=== PATIENT | female | born 1960 | race Caucasian/White ===

== ENCOUNTER 2017-02-01 07:35 | Day surgery (SDC) | payer BC ==
[~2017-02-01 07:35] MED LIST: Lidocaine 2% 5 ML SDV ONE; Propofol 200 MG/20 ML SDV ONE; fentaNYL 100 MCG/2 ML SDV ONE
[2017-02-01] MEDS ORDERED: Lactated Ringers 1,000 ML IV SCH (08:15)
--- NOTE | 2017-02-01 08:39 | PCM.PREANE ---
Preanesthetic Assessment - Anesthesia/Transfusion/Family Hx Anesthesia History: Prior Anesthesia Reaction Other Type of Anesthesia Reaction Comment: states had "problems with N/V after hip surgery" Family History of Anesthesia Reaction: No Transfusion History: No Prior Transfusion(s) - Review of Systems General: No Symptoms Pulmonary: No Symptoms Cardiovascular: No Symptoms Gastrointestinal: No Symptoms Neurological: No Symptoms Other: Reports: None - Physical Assessment NPO Status Date: 01/31/17 NPO Status Time: 20:30 O2 Sat by Pulse Oximetry: 97 Respiratory Rate: 16 Vital Signs: Last Vital Signs Temp 36.3 C 02/01/17 08:04 Pulse 59 L 02/01/17 08:04 Resp 16 02/01/17 08:04 BP 112/70 02/01/17 08:04 Pulse Ox 97 02/01/17 08:04 Height: 1.65 m Weight: 74.843 kg ASA Class: 1 Mental Status: Alert & Oriented x3 Airway Class: Mallampati = 1 Dentition: Reports: Normal Dentition ROM/Head Extension: Full Lungs: Clear to Auscultation, Normal Respiratory Effort Cardiovascular: Regular Rate, Regular Rhythm - Allergies Allergies/Adverse Reactions: Allergies Allergy/AdvReac Type Severity Reaction Status Date / Time No Known Allergies Allergy Verified 01/28/17 07:33 - Anesthesia Plan Pre-Op Medication Ordered: None - Acknowledgements Anesthesia Type Planned: MAC Pt an Appropriate Candidate for the Planned Anesthesia: Yes Alternatives and Risks of Anesthesia Discussed w Pt/Guardian: Yes Pt/Guardian Understands and Agrees with Anesthesia Plan: Yes PreAnesthesia Questionnaire HEENT History: Reports: Other (See Below) Other HEENT History: wears glasses Gastrointestinal History: Reports: None Genitourinary History: Reports: Renal Calculus 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: Reports: Endometriosis, Psychiatric History: Reports: Depression - Past Surgical History Head Surgeries/Procedures: Reports: None Female Surgical History: Reports: Hysterectomy Musculoskeletal Surgical History: Reports: Other (See Below) Other Musculoskeletal Surgeries/Procedures:: hip surgery for torn labrum - SUBSTANCE USE Smoking Status *Q: Never Smoker Recreational Drug Use History: No - HOME MEDS Home Medications: Home Meds Citalopram Hydrobromide [Celexa] 40 mg PO BEDTIME 01/28/17 [History] Estradiol 1 patch TRDERM ASDIRECTED 01/28/17 [History] - CURRENT (IN HOUSE) MEDS Current Meds: Current Medications Lactated Ringer's (Ringers, Lactated) 1,000 mls @ 125 mls/hr IV ASDIRECTED LACEY Last Admin: 02/01/17 08:07 Dose: 125 mls/hr Discontinued Medications Fentanyl (Sublimaze) Confirm Administered Dose 100 mcg .ROUTE .STK-MED ONE Stop: 02/01/17 07:16 Lidocaine (Xylocaine-Mpf 2%) Confirm Administered Dose 5 ml .ROUTE .STK-MED ONE Stop: 02/01/17 07:16 Propofol (Diprivan 20 Ml) Confirm Administered Dose 400 mg .ROUTE .STK-MED ONE Stop: 02/01/17 07:16
--- NOTE | 2017-02-01 09:50 | PCM.OPNOTE ---
- General Post-Op/Procedure Note Date of Surgery/Procedure: 02/01/17 Operative Procedure(s): Colonoscopy Findings: Normal colonoscopy Pre Op Diagnosis: Screening colonoscopy Post-Op Diagnosis: same Anesthesia Technique: MAC Primary Surgeon: Cleopatra Dick Condition: Good
--- NOTE | 2017-02-01 10:04 | PCM.POSTAN ---
POST ANESTHESIA ASSESSMENT - MENTAL STATUS Mental Status: Alert, Oriented - RESPIRATORY Respiratory Status: Respiratory Rate WNL, Airway Patent, O2 Saturation Stable - CARDIOVASCULAR CV Status: Pulse Rate WNL, Blood Pressure Stable - GASTROINTESTINAL GI Status: No Symptoms - POST OP HYDRATION Hydration Status: Adequate & Stable
--- NOTE | 2017-02-01 10:04 | PCM48HPAN ---
Post Anesthesia Note - EVALUATION WITHIN 48HRS OF ANESTHETIC Vital Signs in Normal Range: Yes Patient Participated in Evaluation: Yes Respiratory Function Stable: Yes Airway Patent: Yes Cardiovascular Function Stable: Yes Hydration Status Stable: Yes Pain Control Satisfactory: Yes Nausea and Vomiting Control Satisfactory: Yes Mental Status Recovered: Yes
[2017-02-01 11:27] VITALS: BP 120/76
--- NOTE | 2017-02-01 11:59 | OR ---
SURGEON: CAMELIA FRANKS MD DATE OF PROCEDURE: 02/01/2017 PREOPERATIVE DIAGNOSIS: Screening colonoscopy. POSTOPERATIVE DIAGNOSIS: Screening colonoscopy. PROCEDURE PERFORMED: Screening colonoscopy. ANESTHESIA: MAC. EXTENT OF EXAM: To the cecum. PREP: Good. LIMITATIONS: None. INDICATIONS FOR EXAMINATION: The patient is a 56-year-old female, who presents for a first time screening colonoscopy. The patient and I discussed the procedure as well as expected perioperative course. We discussed the risks, including bleeding, infection, or damage to surrounding structures, including perforation. The patient verbalized understanding and wished to proceed. PROCEDURE IN DETAIL: The patient was brought into the endoscopy suite and placed in the left lateral decubitus position. A time-out was completed verifying the patient's name, age, date of , allergies, and procedure to be performed. Monitored anesthesia care was induced and continuous oxygen was provided via face mask throughout the procedure. After adequate sedation was achieved, a digital rectal exam was performed. This exam was within normal limits. A well lubricated colonoscope was inserted in the rectum and advanced under direct visualization to the level of the cecum. The cecum was identified by both visual and anatomic landmarks. A photograph was taken of the cecal cap. I attempted to retroflex the scope within the cecum, but was unable to do so. The scope was straightened out and fully withdrawn while examining the color, texture, anatomy, and integrity of the mucosa from the cecum to the anal canal. The colon appeared normal and free of pathology. The scope was then brought into the rectum and retroflexed to allow visualization of the anal canal opening. This appeared normal and a photograph was taken. The scope was then straightened out and removed from the patient. Cecum to anus time was 8 minutes. The patient tolerated the procedure well and was taken to PACU in stable condition. ENDOSCOPIC DIAGNOSIS: Normal colonoscopy. RECOMMENDATIONS: Follow up in clinic in 10 years. HARDIK / AKI /[id number]
== END 2017-02-01 10:20 | disposition home or self-care (01) ==
LOC: MW.SDS 07:35
PROVIDERS: ATTEND Surgery
PROC: 0DJD8ZZ Inspection of Lower Intestinal Tract, Via Natural or Artificial Opening Endoscopic (ICD-10-PCS; principal; 2017-02-01)
DX: Z12.11 Encounter for screening for malignant neoplasm of colon (principal); F32.9 Major depressive disorder, single episode, unspecified; Z79.899 Other long term (current) drug therapy; Z79.810 Long term (current) use of selective estrogen receptor modulators (SERMs); Z90.710 Acquired absence of both cervix and uterus; Z87.442 Personal history of urinary calculi
CPT/HCPCS: 45378; J3010; J7120; J2704

== ENCOUNTER 2018-12-23 10:53 | Emergency (ER) | payer BC ==
--- NOTE | 2018-12-23 11:05 | EDM.PDOC ---
ED HPI GENERAL MEDICAL PROBLEM - General Chief Complaint: Neurological Problem Stated Complaint: DIZZY, HEADACHE, NAUSEA Time Seen by Provider: 12/23/18 11:04 Source of Information: Reports: Patient History Limitations: Reports: No Limitations - History of Present Illness INITIAL COMMENTS - FREE TEXT/NARRATIVE: History of present illness: [] Review of systems: As per history of present illness and below otherwise all systems reviewed and negative. Past medical history: As per history of present illness and as reviewed below otherwise noncontributory. Surgical history: As per history of present illness and as reviewed below otherwise noncontributory. Social history: No reported history of drug or alcohol abuse. Family history: As per history of present illness and as reviewed below otherwise noncontributory. Physical exam: General: Well developed, well nourished in NAD HEENT: Atraumatic, normocephalic, pupils reactive, negative for conjunctival pallor or scleral icterus, mucous membranes moist, throat clear, neck supple, nontender, trachea midline. Lungs: Clear to auscultation, breath sounds equal bilaterally, chest nontender. Heart: S1S2, regular, negative for clicks, rubs, or JVD. Abdomen: NABS, Soft, nondistended, nontender. Negative for masses or hepatosplenomegaly. Negative for costovertebral tenderness. Pelvis: Stable nontender. Genitourinary: Deferred. Rectal: Deferred. Extremities: Atraumatic, negative for cords or calf pain. Neurovascular unremarkable. Neuro: Awake, alert, oriented. Cranial nerves II through XII unremarkable. Cerebellum unremarkable. Motor and sensory unremarkable throughout. Exam nonfocal. Skin:warm and dry Diagnostics: Therapeutics: ED Course: Impression: Prescriptions: Plan: Definitive disposition and diagnosis as appropriate pending reevaluation and review of above. 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, Psychiatric History: Reports: Depression - Past Surgical History Head Surgeries/Procedures: Reports: None Female Surgical History: Reports: Hysterectomy Musculoskeletal Surgical History: Reports: Other (See Below) Other Musculoskeletal Surgeries/Procedures:: hip surgery for torn labrum ED ROS GENERAL - Review of Systems Review Of Systems: See Below ED EXAM, DIZZINESS - Physical Exam Exam: See Below Course - Vital Signs Last Recorded V/S: Last Vital Signs Temp 97.0 F 12/23/18 10:59 Pulse 59 L 12/23/18 10:59 Resp 18 12/23/18 10:59 BP 140/105 H 12/23/18 10:59 Pulse Ox 95 12/23/18 10:59 Departure - Discharge Information Referrals: PCP,Unknown [Primary Care Provider] -
[2018-12-23] MEDS ORDERED: Sodium Chloride 0.9% 1,000 ML IV ONE (11:12)
--- NOTE | 2018-12-23 11:14 | EDM.PDOC ---
ED HPI GENERAL MEDICAL PROBLEM - General Chief Complaint: Neurological Problem Stated Complaint: DIZZY, HEADACHE, NAUSEA Time Seen by Provider: 12/23/18 11:04 Source of Information: Reports: Patient History Limitations: Reports: No Limitations - History of Present Illness INITIAL COMMENTS - FREE TEXT/NARRATIVE: HISTORY AND PHYSICAL: History of present illness: Patient is a 58-year-old female who presents to the ED today with acute onset dizziness, and headache when she woke up this morning. Patient states she does have a history of migraines but usually they start behind her eyes and do not present with dizziness. Patient states the headache itself is not the worst headache she has had, but the dizziness is unusual for her. Patient states the dizziness has caused her to vomit numerous times since this morning. Patient states the room feels like it is spinning and feels better when she sits still with her eyes closed. Patient states she's never had vertigo in the past but has had issues with motion sickness so tried to take a meclizine at home. Patient states after taking the meclizine she had vomited up the medication immediately. Patient denies any other health history or symptoms at this time. Patient denies fever, chills, chest pain, shortness of breath, or cough. Denies neck stiff ness, change in vision, syncope, or near syncope. Denies abdominal pain, diarrhea, constipation, or dysuria. Has not noted any blood in urine or stool. Patient has been eating and drinking appropriately prior to onset of symptoms. Review of systems: As per history of present illness and below otherwise all systems reviewed and negative. Past medical history: As per history of present illness and as reviewed below otherwise noncontributory. Surgical history: As per history of present illness and as reviewed below otherwise noncontributory. Social history: See social history for further information Family history: As per history of present illness and as reviewed below otherwise noncontributory. Physical exam: General: Patient is alert, oriented, and in no acute distress. Patient laying comfortably on exam table with lights off and eyes closed. HEENT: Atraumatic, normocephalic, pupils equal and reactive bilaterally, negative for conjunctival pallor or scleral icterus, mucous membranes moist, TMs normal bilaterally, throat clear, neck supple, nontender, trachea midline. No drooling or trismus noted. No meningeal signs. No hot potato voice noted. Lungs: Clear to auscultation, breath sounds equal bilaterally, chest nontender. Heart: S1S2, regular rate and rhythm without overt murmur Abdomen: Soft, nondistended, nontender. Negative for masses or hepatosplenomegaly. Negative for costovertebral tenderness. Pelvis: Stable nontender. Genitourinary: Deferred. Rectal: Deferred. Skin: Intact, warm, dry. No lesions or rashes noted. Extremities: Atraumatic, negative for cords or calf pain. Neurovascular unremarkable. Neuro: Awake, alert, oriented. Cranial nerves II through XII unremarkable.Patient does vomit with movement of head side to side. Cerebellum unremarkable. Motor and sensory unremarkable throughout. Exam nonfocal. Notes: Dr. Mesa verbally involved in patient care. Due to interaction with Zofran and patients home medication, will give her a small amount of Ativan for her symptoms at home. Discussed the importance for follow-up with a primary care provider and for repeat lab work. Did offer admission for observation but patient declines. Voices understanding and is agreeable to plan of care. Denies any further questions or concerns at this time. Diagnostics: CBC, CMP, UA, Troponin, EKG, CXR, Orthostatic Vitals, Head CT Therapeutics: NS, Zofran, Meclizine, Ativan Prescription: Ativan #2, Meclizine Impression: Dizziness Vertigo, resolved Transaminitis Plan: 1. Take medication as prescribed. Follow-up with your primary care provider as discussed. 2. You can also alternate ibuprofen and Tylenol as directed for pain and discomfort. 3. Return to the ED as needed and as discussed. Definitive disposition and diagnosis as appropriate pending reevaluation and review of above. 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 ED EXAM, GENERAL - Physical Exam Exam: See Below (See dictation) Course - Vital Signs Last Recorded V/S: Last Vital Signs Temp 36.1 C 12/23/18 10:59 Pulse 56 L 12/23/18 12:13 Resp 15 12/23/18 12:13 BP 138/80 12/23/18 12:13 Pulse Ox 95 12/23/18 12:13 Orthostatic Blood Pressure [ 146/80 Standing] Orthostatic Blood Pressure [ 141/81 Sitting] Orthostatic Blood Pressure [ 140/80 Supine] - Orders/Labs/Meds Orders: Active Orders 24 hr Category Date Time Status EKG Documentation Completion [RC] STAT Care 12/23/18 11:12 Active Orthostatic Vital Signs [RC] ASDIRECTED Care 12/23/18 11:13 Active Labs: Laboratory Tests 12/23/18 12/23/18 12/23/18 Range/Units 11:05 11:05 12:45 WBC 8.15 (4.0-11.0) K/uL RBC 4.52 (4.30-5.90) M/uL Hgb 14.5 (12.0-16.0) g/dL Hct 42.3 (36.0-46.0) % MCV 93.6 (80.0-98.0) fL MCH 32.1 H (27.0-32.0) pg MCHC 34.3 (31.0-37.0) g/dL RDW Std Deviation 40.9 (28.0-62.0) fl RDW Coeff of Reema 12 (11.0-15.0) % Plt Count 227 (150-400) K/uL MPV 10.00 (7.40-12.00) fL Neut % (Auto) 76.4 (48.0-80.0) % Lymph % (Auto) 13.9 L (16.0-40.0) % [place] % (Auto) 5.2 (0.0-15.0) % Eos % (Auto) 4.3 (0.0-7.0) % Baso % (Auto) 0.2 (0.0-1.5) % Neut # (Auto) 6.2 H (1.4-5.7) K/uL Lymph # (Auto) 1.1 (0.6-2.4) K/uL [place] # (Auto) 0.4 (0.0-0.8) K/uL Eos # (Auto) 0.4 (0.0-0.7) K/uL Baso # (Auto) 0.0 (0.0-0.1) K/uL Nucleated RBC % 0.0 /100WBC Nucleated RBCs # 0 K/uL Sodium 138 (136-145) mmol/L Potassium 4.5 (3.5-5.1) mmol/L Chloride 105 (98-107) mmol/L Carbon Dioxide 25.8 (21.0-32.0) mmol/L BUN 20 H (7.0-18.0) mg/dL Creatinine 0.7 (0.6-1.0) mg/dL Est Cr Clr Drug Dosing 77.49 mL/min Estimated GFR (MDRD) > 60.0 ml/min Glucose 112 H (74-106) mg/dL Calcium 9.5 (8.5-10.1) mg/dL Total Bilirubin 0.6 (0.2-1.0) mg/dL AST 73 H (15-37) IU/L ALT 128 H (14-63) IU/L Alkaline Phosphatase 104 (46-116) U/L Troponin I < 0.050 (0.000-0.056) ng/mL Total Protein 7.4 (6.4-8.2) g/dL Albumin 4.0 (3.4-5.0) g/dL Globulin 3.4 (2.6-4.0) g/dL Albumin/Globulin Ratio 1.2 (0.9-1.6) Urine Color YELLOW Urine Appearance CLEAR Urine pH 6.5 (5.0-8.0) Ur Specific [place] 1.020 (1.001-1.035) Urine Protein NEGATIVE (NEGATIVE) mg/dL Urine Glucose (UA) NEGATIVE (NEGATIVE) mg/dL Urine Ketones NEGATIVE (NEGATIVE) mg/dL Urine Occult Blood SMALL H (NEGATIVE) Urine Nitrite NEGATIVE (NEGATIVE) Urine Bilirubin NEGATIVE (NEGATIVE) Urine Urobilinogen 0.2 (<2.0) EU/dL Ur Leukocyte Esterase NEGATIVE (NEGATIVE) Urine RBC 1-2 (0-2/HPF) Urine WBC 0-1 (0-5/HPF) Ur Epithelial Cells RARE (NONE-FEW) Urine Bacteria RARE (NEGATIVE) Meds: Medications Discontinued Medications Generic Name Dose Route Start Last Admin Trade Name Freq PRN Reason Stop Dose Admin Sodium Chloride 1,000 mls @ 999 mls/hr 12/23/18 11:12 12/23/18 11:20 Normal Saline IV 12/23/18 12:12 999 mls/hr BOLUS ONE Administration Lorazepam 0.5 mg 12/23/18 11:55 12/23/18 12:02 Ativan IVPUSH 12/23/18 11:56 0.5 mg ONETIME ONE Administration Meclizine HCl 25 mg 12/23/18 11:21 12/23/18 12:13 Antivert PO 12/23/18 11:22 25 mg ONETIME ONE Administration Ondansetron HCl 4 mg 12/23/18 11:20 12/23/18 11:36 Zofran IVPUSH 12/23/18 11:21 4 mg ONETIME ONE Administration Departure - Departure Time of Disposition: 13:33 Disposition: Home, Self-Care 01 Clinical Impression: Vertigo, Transaminitis - Discharge Information Referrals: PCP,Unknown [Primary Care Provider] - Forms: ED Department Discharge Additional Instructions: The following information is given to patients seen in the emergency department who are being discharged to home. This information is to outline your options for follow-up care. We provide all patients seen in our emergency department with a follow-up referral. The need for follow-up, as well as the timing and circumstances, are variable depending upon the specifics of your emergency department visit. If you don't have a primary care physician on staff, we will provide you with a referral. We always advise you to contact your personal physician following an emergency department visit to inform them of the circumstance of the visit and for follow-up with them and/or the need for any referrals to a consulting specialist. The emergency department will also refer you to a specialist when appropriate. This referral assures that you have the opportunity for follow-up care with a specialist. All of these measure are taken in an effort to provide you with optimal care, which includes your follow-up. Under all circumstances we always encourage you to contact your private physician who remains a resource for coordinating your care. When calling for follow-up care, please make the office aware that this follow-up is from your recent emergency room visit. If for any reason you are refused follow-up, please contact the [facility] Emergency Department at and asked to speak to the emergency department charge nurse. [facility] [address] [place] [id number] [address] [address] 1. Take medication as prescribed. Follow-up with your primary care provider as discussed. 2. You can also alternate ibuprofen and Tylenol as directed for pain and discomfort. 3. Return to the ED as needed and as discussed. - My Orders Last 24 Hours: My Active Orders 12/23/18 11:12 EKG Documentation Completion [RC] STAT 12/23/18 11:13 Orthostatic Vital Signs [RC] ASDIRECTED - Assessment/Plan Last 24 Hours: My Active Orders 12/23/18 11:12 EKG Documentation Completion [RC] STAT 12/23/18 11:13 Orthostatic Vital Signs [RC] ASDIRECTED
[2018-12-23] MEDS ORDERED: Ondansetron 4 MG/2 ML SDV IVPUSH ONE (11:20)
[2018-12-23] MEDS ORDERED: Meclizine 25 MG Tab PO ONE (11:21)
[2018-12-23 11:50] LABS: BLOOD UREA NITROGEN,BUN 20 mg/dL (7.0-18.0); CARBON DIOXIDE,CO2 25.8 mmol/L (21.0-32.0); CHLORIDE,CL 105 mmol/L (98-107); GLUCOSE RANDOM 112 mg/dL (74-106); POTASSIUM,K 4.5 mmol/L (3.5-5.1); SODIUM,NA 138 mmol/L (136-145)
[2018-12-23] MEDS ORDERED: LORazepam 2 MG/ML SDV IVPUSH ONE (11:55)
--- NOTE | 2018-12-23 12:29 | CR ---
Indication: Dizziness Technique: A frontal view of the chest Comparison: None Findings/Impression: Cardiovascular and mediastinum: Borderline cardiomegaly could be related to the AP technique. Lungs and pleural spaces: Lungs are clear. No sign of infiltrate or mass. No sign of pleural effusion. No pneumothorax. Bones and soft tissues: No significant findings. Dictated by Bigg Isaac MD @ 12/23/2018 12:27:05 PM Dictated by: Bigg Isaac MD @ 12/23/2018 12:27:34 (Electronically Signed)
--- NOTE | 2018-12-23 13:08 | CT ---
INDICATION: Dizziness, headaches, and nausea beginning this morning. COMPARISON: None available. TECHNIQUE: CT examination of the head was performed with 3 mm thick axial sections without intravenous contrast. Images were obtained from the vertex of the skull through the skull base, and I examined the images with the brain and bone windows. Please note that all CT scans at this facility use dose modulation, iterative reconstruction, and/or weight-based dosing when appropriate to reduce radiation dose to as low as reasonably achievable. FINDINGS: : The brain is normal in appearance for the patient`s age on today`s study, with no sign of mass lesion, mass effect, hemorrhage, or edema. The ventricles and sulci are normal in appearance for the patient`s age. The visualized portions of the orbits are normal in appearance. The visualized portions of the paranasal sinuses and mastoids are clear. The osseous structures are normal in their appearance with no sign of abnormality in the skull base or calvarium. Note is made of fullness of the pharyngeal tonsils bilaterally. There is no sign of any abscess. There is a small left tonsillar calculus. IMPRESSION: Normal noncontrast CT of the head for the patient`s age. Nothing seen to correlate with the history of headache or dizziness. There is fullness of the pharyngeal tonsils bilaterally of uncertain etiology. No sign of abscess. Please note that all CT scans at this facility use dose modulation, iterative reconstruction, and/or weight-based dosing when appropriate to reduce radiation dose to as low as reasonably achievable. Dictated by Justin Joyce MD @ Dec 23 2018 1:01PM Signed by Dr. Justin Joyce @ Dec 23 2018 1:06PM
[2018-12-23 13:49] VITALS: BP 130/75; PULSE 59
== END 2018-12-23 13:49 | disposition home or self-care (01) ==
LOC: MW.ED 10:53
DX: R42 Dizziness and giddiness (principal); R74.0 Nonspecific elevation of levels of transaminase and lactic acid dehydrogenase [LDH]; F32.9 Major depressive disorder, single episode, unspecified; Z79.891 Long term (current) use of opiate analgesic
CPT/HCPCS: 36415; 70450; 71045; 80053; 81001; 84484; 85025; 93005; 96361; 96374; 96375; 99284; A9270; J2060; J2405; J7040

== ENCOUNTER 2019-09-06 14:03 | Observation (INO) | payer BC ==
[2019-09-06] MEDS ORDERED: Sodium Chloride 0.9% 10 ML Syringe FLUSH PRN (14:04)
[2019-09-06] MEDS ORDERED: Sodium Chloride 0.9% 10 ML SDV IV PRN (14:04)
[2019-09-06] MEDS ORDERED: Sodium Chloride 0.9% 2.5 ML Syringe FLUSH PRN (14:04)
--- NOTE | 2019-09-06 14:28 | CT ---
Head CT Technique: Multiple axial sections through the brain were obtained. Intravenous contrast was not utilized. Comparison: Prior head CT exam of 12/23/18. Findings: Ventricles along with basal cisterns and sulci over the convexities appear within normal limits for the patient's age. No abnormal parenchymal densities are seen. No evidence of intracranial hemorrhage. No midline shift or mass-effect is seen. Bone window settings were reviewed. No acute calvarial abnormality is seen. Visualized mastoid sinuses and visualized paranasal sinuses are clear. No acute calvarial abnormality is appreciated. Impression: 1. Nothing acute is appreciated on noncontrast head CT exam. Diagnostic code #1 This report was dictated in MDT
--- NOTE | 2019-09-06 14:50 | CR ---
Chest: Portable view of the chest was obtained. Comparison: Prior chest x-ray of 12/23/18. Heart size at the upper limits of normal. Upper mediastinum is normal. Lungs are clear with no acute parenchymal change. Bony structures are grossly intact. Impression: 1. Nothing acute is appreciated on portable chest x-ray. Diagnostic code #2 This report was dictated in MDT
[2019-09-06 15:08] LABS: BLOOD UREA NITROGEN,BUN 14 mg/dL (7.0-18.0); CARBON DIOXIDE,CO2 26.3 mmol/L (21.0-32.0); CHLORIDE,CL 104 mmol/L (98-107); GLUCOSE RANDOM 99 mg/dL (74-106); POTASSIUM,K 3.9 mmol/L (3.5-5.1); SODIUM,NA 139 mmol/L (136-145)
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
[2019-09-06] MEDS ORDERED: LORazepam 2 MG/ML SDV IVPUSH PRN (19:38)
[2019-09-06 20:01] LABS: HEMOGLOBIN A1C 5.4 % (4.5-6.2)
[2019-09-06] MEDS: Aspirin 81 MG Tab.Chew PO SCH (20:17)
[2019-09-06] MEDS ORDERED: atorvaSTATin 40 MG Tab PO SCH (21:00)
[2019-09-07 08:00] VITALS: BP 119/76; PULSE 70
[2019-09-07] MEDS ORDERED: Sertraline 100 MG Tab PO SCH (09:00)
[2019-09-07] MEDS: Aspirin 81 MG Tab.Chew PO SCH (09:34)
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
[2019-09-07] MEDS ORDERED: Gadobenate Dimeglumine 529 MG/ML 20 ML SDV IVPUSH STA (12:27)
--- NOTE | 2019-09-07 13:42 | MR ---
MR angiogram of brain Technique: Lsoy-eu-joegmt MR angiogram study was obtained centered to the [place]. Multiple MIP images were obtained. Findings: Dominant left vertebral artery is seen. Flow is noted into the basilar and posterior cerebral arteries. Carotid siphon appears normal. Normal flow into the middle and anterior cerebral arteries are seen. No focal stenosis or occlusion is seen. No discrete aneurysm is appreciated. Impression: 1. No abnormality is identified on MR angiogram of the brain. Diagnostic code #1 This report was dictated in MDT
--- NOTE | 2019-09-07 13:52 | MR ---
MR angiogram of neck (without and with intravenous contrast) Technique: Phase contrast imaging obtained through the neck. Intravenous contrast then given and repeat imaging through the neck was obtained. Multiple MIP images were obtained. Findings: Both vertebral arteries are patent into the basilar artery. Common carotid arteries are patent. Internal and proximal external carotid arteries are patent with no focal stenosis. No dissection is seen. Impression: 1. No abnormality is identified on MR angiogram of the neck. Diagnostic code #1 This report was dictated in MDT
--- NOTE | 2019-09-07 13:52 | MR ---
MRI Brain Technique: T1, T2, FLAIR and diffusion axial; T1 coronal and sagittal Comparison: Prior head CT study of 09/06/19. Findings: No acute diffusion abnormalities are seen. Ventricles along with basal cisterns and sulci over the convexities are within normal limits for the patient's age. No abnormal signal is seen within the brain parenchyma. No midline shift or mass-effect is seen. No acute diffusion abnormalities are appreciated. Impression: 1. No abnormality is appreciated on MR angiogram study of the brain Diagnostic code #1 This report was dictated in MDT
[2019-09-07] MEDS ORDERED: atorvaSTATin 10 MG Tab PO SCH (21:00)
--- NOTE | 2019-09-11 11:09 | ECHO ---
EXAM DATE: 09/06/19 PATIENT'S AGE: 59 The ECHO report can be seen in this patient's EMR (Electronic Medical Record) in the REPORTS section. The report has also been scanned into PACS. CRYSTAL
== END 2019-09-07 16:25 | disposition home or self-care (01) ==
LOC: MW.ED 14:03 → MW.MS 17:10 → UNDODISOB 09-07 10:55
PROVIDERS: ADMIT Student in an Organized Health Care Education/Training Program; ATTEND Student in an Organized Health Care Education/Training Program
DX: R41.82 Altered mental status, unspecified (principal); R55 Syncope and collapse; F32.9 Major depressive disorder, single episode, unspecified; I10 Essential (primary) hypertension; Z79.899 Other long term (current) drug therapy; Z79.82 Long term (current) use of aspirin; Z87.442 Personal history of urinary calculi
CPT/HCPCS: 36415; 70450; 70544; 70549; 70551; 71045; 80053; 80061; 80305; 83036; 84443; 84484; 85025; 85610; 85730; 93005; 93306; 99285; A9270; A9577; G0378; 99284

== ENCOUNTER 2020-11-05 08:54 | Day surgery (SDC) | payer BC ==
[~2020-11-05 08:54] MED LIST changes: +Albuterol 0.083% 2.5 MG/3 ML Neb Soln NEB PRN; +Ondansetron 4 MG/2 ML SDV IVPUSH PRN; +Ondansetron 4 MG/2 ML SDV ONE
--- NOTE | 2020-11-05 10:20 | PCM.PREANE ---
Preanesthetic Assessment - Anesthesia/Transfusion/Family Hx Anesthesia History: Prior Anesthesia Reaction Other Type of Anesthesia Reaction Comment: states had "problems with N/V after hip surgery" Family History of Anesthesia Reaction: No Transfusion History: No Prior Transfusion(s) - Review of Systems General: No Symptoms Pulmonary: No Symptoms Cardiovascular: No Symptoms Gastrointestinal: No Symptoms Neurological: No Symptoms Other: Reports: None - Physical Assessment NPO Status Date: 11/05/20 NPO Status Time: 00:00 Vital Signs: Last Vital Signs Temp 96.8 F L 11/05/20 09:26 Pulse 64 11/05/20 09:26 Resp 16 11/05/20 09:26 BP 148/84 H 11/05/20 09:26 Pulse Ox 97 11/05/20 09:26 Height: 5 ft 4 in Weight: 154 lb ASA Class: 3 Mental Status: Alert & Oriented x3 Airway Class: Mallampati = 2 Dentition: Reports: Normal Dentition, Implants ROM/Head Extension: Full Lungs: Clear to Auscultation, Normal Respiratory Effort Cardiovascular: Regular Rate, Regular Rhythm - Allergies Allergies/Adverse Reactions: Allergies Allergy/AdvReac Type Severity Reaction Status Date / Time No Known Allergies Allergy Verified 10/30/20 09:44 - Acknowledgements Anesthesia Type Planned: General Anesthesia Pt an Appropriate Candidate for the Planned Anesthesia: Yes Alternatives and Risks of Anesthesia Discussed w Pt/Guardian: Yes Pt/Guardian Understands and Agrees with Anesthesia Plan: Yes PreAnesthesia Questionnaire HEENT History: Reports: Other (See Below) Other HEENT History: wears glasses Cardiovascular History: Reports: Hypertension Respiratory History: Reports: None Gastrointestinal History: Reports: None Genitourinary History: Reports: Renal Calculus 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 CULLER History: Reports: Endometriosis, Musculoskeletal History: Reports: None Neurological History: Reports: None Psychiatric History: Reports: Depression Endocrine/Metabolic History: Reports: None Hematologic History: Reports: None Immunologic History: Reports: None Oncologic (Cancer) History: Reports: None Dermatologic History: Reports: None - Infectious Disease History Infectious Disease History: Reports: Chicken Pox - Past Surgical History Head Surgeries/Procedures: Reports: None HEENT Surgical History: Reports: None Cardiovascular Surgical History: Reports: None Respiratory Surgical History: Reports: None GI Surgical History: Reports: Colonoscopy Female Surgical History: Reports: Hysterectomy Endocrine Surgical History: Reports: None Neurological Surgical History: Reports: None Musculoskeletal Surgical History: Reports: Other (See Below) Other Musculoskeletal Surgeries/Procedures:: hip surgery for torn labrum Oncologic Surgical History: Reports: None Dermatological Surgical History: Reports: None - SUBSTANCE USE Tobacco Use Status *Q: Never Tobacco User - HOME MEDS Home Medications: Home Meds estradioL [Estradiol (Twice Weekly)] 1 patch TRDERM ASDIRECTED 01/28/17 [History] Ergocalciferol (Vitamin D2) [Vitamin D2] 50,000 units PO WEEKLY 10/30/20 [History] Pantoprazole Sodium [Protonix] 40 mg PO DAILY 10/30/20 [History] Pravastatin Sodium [Pravastatin (Pravachol)] 40 mg PO DAILY 10/30/20 [History] Venlafaxine HCl [Venlafaxine HCl ER] 150 mg PO DAILY 10/30/20 [History] Verapamil HCl 40 mg PO TID 10/30/20 [History] - CURRENT (IN HOUSE) MEDS Current Meds: Current Medications Albuterol (Albuterol 0.083% 2.5 Mg/3 Ml Neb Soln) 2.5 mg NEB ONETIME PRN PRN Reason: Wheezing Ondansetron HCl (Ondansetron 4 Mg/2 Ml Sdv) 4 mg IVPUSH ONETIME PRN PRN Reason: Nausea/Vomiting Discontinued Medications Fentanyl (Fentanyl 100 Mcg/2 Ml Sdv) Confirm Administered Dose 100 mcg .ROUTE .STK-MED ONE Stop: 11/05/20 08:29 Lidocaine (Lidocaine 2% 5 Ml Sdv) Confirm Administered Dose 5 ml .ROUTE .STK-MED ONE Stop: 11/05/20 08:28 Ondansetron HCl (Ondansetron 4 Mg/2 Ml Sdv) Confirm Administered Dose 4 mg .ROUTE .STK-MED ONE Stop: 11/05/20 08:28 Propofol (Propofol 200 Mg/20 Ml Sdv) Confirm Administered Dose 200 mg .ROUTE .STK-MED ONE Stop: 11/05/20 08:27
[2020-11-05] MEDS ORDERED: fentaNYL 100 MCG/2 ML SDV ONE (11:45)
--- NOTE | 2020-11-05 12:15 | PCM.POSTAN ---
POST ANESTHESIA ASSESSMENT - MENTAL STATUS Mental Status: Alert, Oriented - VITAL SIGNS Vital Signs: Last Vital Signs Temp 97.3 F 11/05/20 12:03 Pulse 61 11/05/20 12:03 Resp 11 L 11/05/20 12:03 BP 107/68 11/05/20 12:03 Pulse Ox 99 11/05/20 12:03 - RESPIRATORY Respiratory Status: Respiratory Rate WNL, Airway Patent, O2 Saturation Stable - CARDIOVASCULAR CV Status: Pulse Rate WNL, Blood Pressure Stable - GASTROINTESTINAL GI Status: No Symptoms - POST OP HYDRATION Hydration Status: Adequate & Stable
--- NOTE | 2020-11-05 12:15 | PCM48HPAN ---
Post Anesthesia Note - EVALUATION WITHIN 48HRS OF ANESTHETIC Vital Signs in Normal Range: Yes Patient Participated in Evaluation: Yes Respiratory Function Stable: Yes Airway Patent: Yes Cardiovascular Function Stable: Yes Hydration Status Stable: Yes Pain Control Satisfactory: Yes Nausea and Vomiting Control Satisfactory: Yes Mental Status Recovered: Yes Vital Signs: Last Vital Signs Temp 97.3 F 11/05/20 12:03 Pulse 61 11/05/20 12:03 Resp 11 L 11/05/20 12:03 BP 107/68 11/05/20 12:03 Pulse Ox 99 11/05/20 12:03
[2020-11-05 13:54] VITALS: BP 122/84; PULSE 59
--- NOTE | 2020-11-05 13:59 | PCM.OPNOTE ---
- General Post-Op/Procedure Note Date of Surgery/Procedure: 11/05/20 Operative Procedure(s): Diagnostic EGD Findings: Presbyesophagus, no evidence of a hiatal hernia Pre Op Diagnosis: Hiatal hernia, reflux, esophageal spasm Post-Op Diagnosis: Presbyesophagus, Reflux, Esophageal spasm [place] [facility] [place]geon: Cleopatra Dick Condition: Good Free Text/Narrative:: Intake & Output 11/04/20 11/05/20 11/05/20 22:59 06:59 14:59 Intake Total 1000 Balance 1000
--- NOTE | 2020-11-06 21:23 | OR ---
SURGEON: CLEOPATRA DICK MD DATE OF PROCEDURE: 11/05/2020 PREOPERATIVE DIAGNOSIS: Hiatal hernia associated with reflux. POSTOPERATIVE DIAGNOSES: 1. Esophageal dysmotility. 2. Gastroesophageal reflux disease. 3. Presbyesophagus. PROCEDURE PERFORMED: Diagnostic esophagogastroduodenoscopy with biopsy. PRIMARY SURGEON: Cleopatra Dick MD ANESTHESIA: MAC. INSTRUMENT USED: Olympus endoscope. EXTENT OF THE EXAM: To the second portion of duodenum. PREPARATION: Good. LIMITATIONS: None. INDICATIONS FOR EXAMINATION: The patient is a 60-year-old female with increasing heartburn symptoms. I did a preoperative esophagram that showed esophageal spasm, GERD, and a moderate-to- large-sized hiatal hernia. I reviewed these results with the patient and explained the need for diagnostic EGD. I explained the procedure, expected perioperative course, and the risks. The patient verbalized understanding and wishes to proceed. PROCEDURE IN DETAIL: The patient was brought in to the endoscopy suite and placed in a beach chair position. A time-out was completed verifying the patient's name, age, date of , allergies, and procedure to be performed. Monitored anesthesia care was induced and a bite block was placed in the patient's mouth. Continuous oxygen was provided via nasal cannula throughout the procedure. After adequate sedation was achieved, a well-lubricated endoscope was placed in the patient's mouth and advanced under direct visualization to the second portion of duodenum. This appeared normal and a photograph was taken. The scope was then fully withdrawn while examining the color, texture, anatomy, and integrity of the mucosa of the upper GI tract. The duodenum appeared normal. The scope was brought into the stomach and a photograph was taken of the pylorus and GE junction. There appeared to be no evidence of a hiatal hernia with retroflexion of my scope. The gastric mucosa all appeared normal. Biopsies were taken of the gastric antrum, body, and fundus and sent for histologic review and H pylori testing. The scope was then brought into the distal esophagus and a photograph was taken of the Z-line. The Z-line was at 40 cm and appeared grossly normal. A biopsy was taken of the distal esophagus and sent to Pathology, labeled as esophageal biopsy. Upon inspection of the distal esophagus, the patient did appear to have a dilated esophagus. This was consistent with some presbyesophagus which may be what was assumed to be a hiatal hernia during the preoperative esophagram. Photographs of this were taken. The scope was removed and the procedure was terminated. The patient tolerated the procedure well and was transferred to the PACU in stable condition. ENDOSCOPIC DIAGNOSES: 1. Esophageal dysmotility. 2. Gastroesophageal reflux disease. 3. Presbyesophagus. RECOMMENDATIONS: We will follow up with the patient in clinic in two weeks to discuss her biopsy results, but explained to her that she will likely need to be referred on to a GI specialist to determine what may be causing her esophageal pathology. HARDIK PRABHAKAR /[id number]
== END 2020-11-05 12:43 | disposition home or self-care (01) ==
LOC: MW.SDS 08:54
PROVIDERS: ATTEND Surgery
DX: K21.00 Gastro-esophageal reflux disease with esophagitis, without bleeding (principal); K44.9 Diaphragmatic hernia without obstruction or gangrene; K31.89 Other diseases of stomach and duodenum; K22.8 Other specified diseases of esophagus; K22.4 Dyskinesia of esophagus; I10 Essential (primary) hypertension; G31.84 Mild cognitive impairment of uncertain or unknown etiology; Z79.899 Other long term (current) drug therapy
CPT/HCPCS: 43239; J2405; J2704; J3010; 88305; 88342

== ENCOUNTER 2021-03-29 11:40 | Emergency (ER) | payer BC ==
[2021-03-29] MEDS ORDERED: Ketorolac 60 MG/2 ML SDV IM ONE (12:23)
[2021-03-29] MEDS ORDERED: Orphenadrine 60 MG/2 ML Inj IM ONE (12:24)
[2021-03-29] MEDS ORDERED: Diazepam 5 MG Tab PO ONE (12:24)
[2021-03-29] MEDS ORDERED: Acetaminophen/oxyCODONE 325-10 MG Tab PO ONE (12:24)
--- NOTE | 2021-03-29 12:27 | EDM.PDOC ---
ED HPI GENERAL MEDICAL PROBLEM - General Chief Complaint: Back Pain or Injury Stated Complaint: FELL/SLIPPED ON ICE Time Seen by Provider: 03/29/21 11:49 Source of Information: Reports: Patient, Family (daughter) History Limitations: Reports: No Limitations - History of Present Illness INITIAL COMMENTS - FREE TEXT/NARRATIVE: HISTORY AND PHYSICAL: History of present illness: The patient is a 60-year-old female who presents to the emergency department for complaints of left mid pain after slipping and falling down the last 3 steps at her house. The patient and her daughter state the weather is icy and snowing and they live about [place] hour north of the emergency department. The patient states that she fell backwards at an angle striking her left back first and then her head. Patient denies any LOC, vomiting or confusion. She states that she has pain in the left middle back without any radiation. She describes the pain as sharp and stabbing hurts with a deep breath. The patient took Tylenol at around 1030 which did not help. The patient does have chronic low back pain. Patient denies any fever, chills, headache, change in vision, syncope or near syncope. Denies any chest pain, shortness of breath or cough. Denies any abdominal pain, nausea, vomiting, diarrhea, constipation or dysuria. Has not noted any blood in urine or stool. Patient has been eating and drinking appropriately. Review of systems: As per history of present illness and below otherwise all systems reviewed and negative. Past medical history: As per history of present illness and as reviewed below otherwise noncontributory. Surgical history: As per history of present illness and as reviewed below otherwise noncontributory. Social history: See social history for further information Family history: As per history of present illness and as reviewed below otherwise noncontributory. Physical exam: General: Well developed and well nourished. Alert and orientated x 3. Nontoxic in appearance and in no acute distress. Vital signs are stable and have been reviewed by me. Nursing notes were reviewed. HEENT: Atraumatic, normocephalic, pupils equal and reactive bilaterally, neg ative for conjunctival pallor or scleral icterus, mucous membranes moist, TMs normal bilaterally, throat clear, neck supple, nontender, trachea midline. No drooling or trismus noted. No meningeal signs. No hot potato voice noted. Lungs: Clear to auscultation bilaterally. No wheezes, rales, or rhonchi. Chest nontender. Normal work of breathing, no accessory muscles used. Heart: S1S2, regular rate and rhythm without overt murmur, gallops, or rubs. No JVD. No peripheral edema Abdomen: Soft, nondistended, nontender. Normoactive bowel sounds. Negative for masses or costovertebral tenderness. Skin: Intact, warm, dry. No lesions or rashes noted. Hematologic: No petechiae or purpra. Mucosa appropriate color and normal nail bed color and refill. Back: Neck and back have no deformities, external skin changes, or signs of trauma. Curvature of the cervical, thoracic, and lumbar spine are within normal limits. Bony features of the shoulders and hips are of equal height bilaterally. Posture is upright, gait is smooth, steady, and within normal limits. No tenderness is noted on palpation of the spinous processes. Spinous processes are midline. Cervical, thoracic, and lumbar paraspinal muscles are not tender and are without spasm. Discomfort is noted with flexion, extension, and vxxp-wy-[id number] rotation of the cervical spine, decreasing range of motion is noted. Decreased range of motion including flexion, extension, and [id number]-cb-[id number] rotation of the thoracic and lumbar spine are noted and without discomfort. Straight leg raise test is negative bilaterally. Sensation to the upper and lowe r extremities is normal bilaterally. No clonus is noted. Manufacturing Design Engineer strength is normal bilaterally. Dorsi/plantar flexion is normal bilaterally. Extremities: Atraumatic, moves all extremities per self without difficulty or deficits, negative for cords or calf pain. Neurovascular unremarkable. Neuro: Awake, alert, oriented. Cranial nerves II through XII unremarkable. Cerebellum unremarkable. Motor and sensory unremarkable throughout. Exam nonfocal. Psychiatric: Mood and affect are appropriate. Normal thought process. Answering questions appropriately. Notes: *This patient was seen and evaluated during the 2019 SARS-CoV-2 novel coronavirus pandemic period. Community viral transmission is ongoing at time of this encounter and the emergency department is operating under pandemic response procedures. Stated above the patient is a 60-year-old female who presents to the emergency department with complaints of left mid posterior back pain after slipping on some steps and landing on her back and hitting her head. She had no LOC, vomiting, or confusion. Her neurological exam was intact. The patient is tender on her mid left back and has increased pain with movement. I have ordered a chest x-ray to rule out a rib fracture and will treat the patient's pain with Toradol, Norflex, Valium, and Percocet. Chest x-ray IMPRESSION: Acute fracture of the lateral left 7th rib with half shaft with offset. No pneumothorax. Lung parenchyma is clear. Pulmonary vascularity and cardiomediastinal silhouette are normal. Discussed the results with the patient and her daughter. I have prescribed a lidocaine patch for application in the emergency department. I will prescribe lidocaine patches for home use, Norflex 100 mg p.o. twice daily, and Percocet 325/5 mg 1 every 4-6 hours as needed for pain. I also have given the patient in incentive spirometer for prevention of pneumonia as she is going to be immobile. Also have educated the patient on the need for a stool softener of some type as she is prone to constipation. The patient and daughter both verbalize understanding and all questions were answered. The patient is agreeable with this discharge plan. I have talked with the patient about today's findings, in addition to providing specific details for plan of care. Reassessment at the time of disposition demonstrates that the patient is in no acute distress. The patient is stable for discharge, counseling was provided and we discussed in great detail signs and symptoms that would prompt them to return to the Emergency Department. Medication, follow up and supportive care measures were reviewed and discussed. Voices understanding and is agreeable to plan of care. Denies any further questions or concerns at this time. Diagnostics: CXR Therapeutics:Norflex, Toradol, Valium, Percocet Prescription:Lidoderm patch 1 every 12 hours to the site for pain, Norflex 100 mg by mouth twice a day, Percocet 325/5 mg bu mouth 1-2 every 4-6 hours Impression: Fractured rib Plan: 1. You were evaluated today on an emergent basis. Your complaints of left mid back pain was evaluated with an x-ray and found to have an Acute fracture of the lateral left 7th rib. Your pain was treated in the emergency department with Norflex, Toradol, Valium, and Percocet. For home purposes, I have prescribed Lidoderm patch 1 every 12 hours to the site for pain, Norflex 100 mg by mouth twice a day for spasms as needed which was sent to [place] [facility], Percocet 325/5 mg by mouth 1-2 every 4-6 hours as needed for pain, it was a paper prescription. I also have sent home with an incentive spirometer for you to use every 1-2 hours to keep your lungs healthy and prevent pneumonia. As we discussed with decreased movement and the use of narcotics you are prone to constipation. I would use a stool softener such as [id number] Colace, Metamucil, or MiraLAX. I would start today to prevent the constipation. I would follow-up with your primary care in approximately 1 week. Please return to the emergency department if you have increased difficulty breathing, develop a fever, or unable to control your pain. 2. You can alternate Tylenol and ibuprofen as needed for pain and fever management. 3. We encourage you to follow up with your primary care provider and/or recommended specialist in the next few days for re-evaluation and further care/management. 4. If your symptoms should worsen, new symptoms develop or any of the signs and symptoms we discussed should arise please return to the emergency room or call 911 (if needed). Definitive disposition and diagnosis as appropriate pending reevaluation and review of above. Treatments TOOL DESIGNER: Reports: Acetaminophen Upper Back Pain Score (Numeric/FACES): 10 - Related Data Allergies Allergy/AdvReac Type Severity Reaction Status Date / Time No Known Allergies Allergy Verified 03/29/21 11:58 Home Meds: Home Meds estradioL [Estradiol (Twice Weekly)] 1 patch TRDERM ASDIRECTED 01/28/17 [History] Ergocalciferol (Vitamin D2) [Vitamin D2] 50,000 units PO WEEKLY 10/30/20 [Hi story] Pantoprazole Sodium [Protonix] 40 mg PO DAILY 10/30/20 [History] Pravastatin Sodium [Pravastatin (Pravachol)] 40 mg PO DAILY 10/30/20 [History] Venlafaxine HCl [Venlafaxine HCl ER] 225 mg PO DAILY 10/30/20 [History] Verapamil HCl 40 mg PO TID 10/30/20 [History] Lidocaine [Lidoderm] 1 each TP Q12HR 12 Days #24 adh..patch 03/29/21 [Rx] Orphenadrine [Norflex] 100 mg PO BID PRN 1 Days #20 tab 03/29/21 [Rx] buPROPion [Wellbutrin] 150 mg PO DAILY 03/29/21 [History] Past Medical History HEENT History: Reports: Other (See Below) Other HEENT History: wears glasses Cardiovascular History: Reports: High Cholesterol, Hypertension Respiratory History: Reports: None Gastrointestinal History: Reports: GERD Genitourinary History: Reports: Renal Calculus PR INTERN History: Reports: Endometriosis, Musculoskeletal History: Reports: None Neurological History: Reports: None Psychiatric History: Reports: Anxiety, Depression Endocrine/Metabolic History: Reports: None Hematologic History: Reports: None Immunologic History: Reports: None Oncologic (Cancer) History: Reports: None Dermatologic History: Reports: None - Infectious Disease History Infectious Disease History: Reports: Chicken Pox - Past Surgical History Head Surgeries/Procedures: Reports: None HEENT Surgical History: Reports: None Cardiovascular Surgical History: Reports: None Respiratory Surgical History: Reports: None GI Surgical History: Reports: Colonoscopy Female Surgical History: Reports: Hysterectomy Endocrine Surgical History: Reports: None Neurological Surgical History: Reports: None Musculoskeletal Surgical History: Reports: Other (See Below) Other Musculoskeletal Surgeries/Procedures:: hip surgery for torn labrum Oncologic Surgical History: Reports: None Dermatological Surgical History: Reports: None Social & Family History - Family History Family Medical History: No Pertinent Family History - Tobacco Use Tobacco Use Status *Q: Never Tobacco User - Caffeine Use Caffeine Use: Reports: Coffee - Recreational Drug Use Recreational Drug Use: No ED ROS GENERAL - Review of Systems Review Of Systems: Comprehensive ROS is negative, except as noted in HPI. ED EXAM, GENERAL - Physical Exam Exam: See Below (See dictation) Course - Vital Signs Last Recorded V/S: Last Vital Signs Temp 98.1 F 03/29/21 11:47 Pulse 62 03/29/21 13:08 Resp 18 03/29/21 13:08 BP 143/84 H 03/29/21 13:08 Pulse Ox 97 03/29/21 13:08 - Orders/Labs/Meds Meds: Medications Discontinued Medications Generic Name Dose Route Start Last Admin Trade Name Freq PRN Reason Stop Dose Admin Diazepam 10 mg 03/29/21 12:24 03/29/21 12:50 Diazepam 5 Mg Tab PO 03/29/21 12:25 5 mg ONETIME ONE Administration Ketorolac Tromethamine 60 mg 03/29/21 12:23 03/29/21 12:44 Ketorolac 60 Mg/2 Ml Sdv IM 03/29/21 12:24 60 mg ONETIME ONE Administration Lidocaine 700 mg 03/29/21 13:47 03/29/21 14:10 Lidocaine 5% 700 Mg Patch TRDERM 03/29/21 13:48 700 mg ONETIME ONE Administration Orphenadrine Citrate 60 mg 03/29/21 12:24 03/29/21 12:43 Orphenadrine 60 Mg/2 Ml Inj IM 03/29/21 12:25 60 mg ONETIME ONE Administration Oxycodone/Acetaminophen 1 tab 03/29/21 12:24 03/29/21 12:51 Acetaminophen/Oxycodone 325-10 Mg Tab PO 03/29/21 12:25 0.5 tab ONETIME ONE Administration Departure - Departure Time of Disposition: 14:00 Disposition: Home, Self-Care 01 Condition: Good Clinical Impression: Fractured rib Qualifiers: Encounter type: initial encounter Rib fracture type: single rib Fracture type: closed Laterality: left Qualified Code(s): S22.32XA - Fracture of one rib, left side, initial encounter for closed fracture - Discharge Information *PRESCRIPTION DRUG MONITORING PROGRAM REVIEWED*: Not Applicable *COPY OF PRESCRIPTION DRUG MONITORING REPORT IN PATIENT ADAL: Not Applicable Prescriptions: Lidocaine [Lidoderm] 1 each TP Q12HR 12 Days #24 adh..patch Orphenadrine [Norflex] 100 mg PO BID PRN 1 Days #20 tab PRN Reason: Muscle Spasm - Painful Referrals: Nelli Goodwin NP [Primary Care Provider] - Forms: ED Department Discharge Additional Instructions: The following information is given to patients seen in the emergency department who are being discharged to home. This information is to outline your options for follow-up care. We provide all patients seen in our emergency department with a follow-up referral. The need for follow-up, as well as the timing and circumstances, are variable depending upon the specifics of your emergency department visit. If you don't have a primary care physician on staff, we will provide you with a referral. We always advise you to contact your personal physician following an emergency department visit to inform them of the circumstance of the visit and for follow-up with them and/or the need for any referrals to a consulting specialist. The emergency department will also refer you to a specialist when appropriate. This referral assures that you have the opportunity for follow-up care with a specialist. All of these measure are taken in an effort to provide you with optimal care, which includes your follow-up. Under all circumstances we always encourage you to contact your private physician who remains a resource for coordinating your care. When calling for follow-up care, please make the office aware that this follow-up is from your recent emergency room visit. If for any reason you are refused follow-up, please contact the [facility] Emergency Department at and asked to speak to the emergency department charge nurse. [facility] - [facility] [address] [place] [id number] [address] [address] Plan: 1. You were evaluated today on an emergent basis. Your complaints of left mid back pain was evaluated with an x-ray and found to have an Acute fracture of the lateral left 7th rib. Your pain was treated in the emergency department with Norflex, Toradol, Valium, and Percocet. For home purposes, I have prescribed L idoderm patch 1 every 12 hours to the site for pain, Norflex 100 mg by mouth twice a day for spasms as needed which was sent to [place] [facility], Percocet 325/5 mg by mouth 1-2 every 4-6 hours as needed for pain, it was a paper prescription. I also have sent home with an incentive spirometer for you to use every 1-2 hours to keep your lungs healthy and prevent pneumonia. As we discussed with decreased movement and the use of narcotics you are prone to constipation. I would use a stool softener such as [id number] Colace, Metamucil, or MiraLAX. I would start today to prevent the constipation. I would follow-up with your primary care in approximately 1 week. Please return to the emergency department if you have increased difficulty breathing, develop a fever, or unable to control your pain. 2. You can alternate Tylenol and ibuprofen as needed for pain and fever management. 3. We encourage you to follow up with your primary care provider and/or recommended specialist in the next few days for re-evaluation and further care/management. 4. If your symptoms should worsen, new symptoms develop or any of the signs and symptoms we discussed should arise please return to the emergency room or call 911 (if needed). Sepsis Event Note (ED) - Evaluation Sepsis Screening Result: No Definite Risk - Focused Exam Vital Signs: Vital Signs Temp Pulse Resp BP Pulse Ox 03/29/21 13:08 62 18 143/84 H 97 03/29/21 11:47 98.1 F 68 18 132/82 98
--- NOTE | 2021-03-29 13:43 | CR ---
INDICATION: Fall. TECHNIQUE: One view. COMPARISON: 06 September 2019. IMPRESSION: Acute fracture of the lateral left 7th rib with half shaft with offset. No pneumothorax. Lung parenchyma is clear. Pulmonary vascularity and cardiomediastinal silhouette are normal. Dictated by René Crandall MD @ 03/29/2021 1:41:21 PM (Electronically Signed)
[2021-03-29] MEDS ORDERED: Lidocaine 5% 700 MG Patch TRDERM ONE (13:47)
[2021-03-29 14:25] VITALS: BP 137/86; PULSE 65
== END 2021-03-29 14:17 | disposition home or self-care (01) ==
LOC: MW.ED 11:40
DX: S22.32XA Fracture of one rib, left side, initial encounter for closed fracture (principal); S09.90XA Unspecified injury of head, initial encounter; E78.00 Pure hypercholesterolemia, unspecified; I10 Essential (primary) hypertension; Z79.899 Other long term (current) drug therapy; W01.198A Fall on same level from slipping, tripping and stumbling with subsequent striking against other object, initial encounter; Y92.009 Unspecified place in unspecified non-institutional (private) residence as the place of occurrence of the external cause
CPT/HCPCS: 71046; 96372; 99283; A9270; J1885; J2360

== ENCOUNTER 2021-08-06 20:22 | Emergency (ER) | payer BC ==
[2021-08-06] MEDS ORDERED: Sodium Chloride 0.9% 1,000 ML IV ONE (20:59)
[2021-08-06] MEDS ORDERED: Ondansetron 4 MG/2 ML SDV IVPUSH ONE (20:59)
[2021-08-06 22:30] LABS: BLOOD UREA NITROGEN,BUN 16 mg/dL (7.0-18.0); CARBON DIOXIDE,CO2 26.7 mmol/L (21.0-32.0); CHLORIDE,CL 102 mmol/L (98-107); GLUCOSE RANDOM 125 mg/dL (74-106); LIPASE 72 U/L (73-393); POTASSIUM,K 4.3 mmol/L (3.5-5.1); SODIUM,NA 137 mmol/L (136-145)
[2021-08-06] MEDS ORDERED: Iopamidol 755 MG/ML 500 ML Multipack Bottle IVPUSH STA (22:56)
[2021-08-06] MEDS ORDERED: Ketorolac 30 MG/ML SDV IVPUSH ONE (23:52)
[2021-08-07] MEDS ORDERED: Metoclopramide 10 MG/2 ML SDV IVPUSH ONE (00:33)
[2021-08-07 01:30] VITALS: BP 125/86; PULSE 82
== END 2021-08-07 01:30 | disposition home or self-care (01) ==
LOC: MW.ED 20:22
DX: R11.10 Vomiting, unspecified (principal); I10 Essential (primary) hypertension; E78.00 Pure hypercholesterolemia, unspecified; F41.9 Anxiety disorder, unspecified; F32.A Depression, unspecified; Z79.899 Other long term (current) drug therapy
CPT/HCPCS: 36415; 74177; 80053; 81003; 83690; 84484; 85025; 93005; 99284; J1885; J2405; J2765; J7030; Q9967; 93010; 99283